=== PATIENT | male | born 1945 | race African-American/Black ===

== ENCOUNTER → 2020-02-10 | Outpatient (CLI) | payer BC ==
[~2020-02-10] MED LIST: AMLO10TA80 PO; PROP10TA10 PO; VITAMIN D PO; [UNRECOGNIZED DRUG - OTHER] PO
== END | disposition home or self-care (01) ==
LOC: LAB 09:35
PROVIDERS: ATTEND Surgery
DX: Z01.818 Encounter for other preprocedural examination (principal); Z11.59 Encounter for screening for other viral diseases
CPT/HCPCS: C9803; U0003

== ENCOUNTER 2020-02-12 07:45 | Day surgery (SDC) | payer BC ==
[~2020-02-12] VITALS: Ht 188 cm; Wt 121.1 kg
[2020-02-12] MEDS ORDERED: SKIN ADHESIVE 0.7 GM EA TOP ONE (08:37)
[2020-02-12] MEDS ORDERED: BUPIVACAINE HCL 0.5% (5MG/ML) 50ML ONE (08:38)
[2020-02-12] MEDS: LACTATED RINGERS 1,000 ML IV SCH ×2 (09:00→13:51)
[2020-02-12] MEDS ORDERED: FENTANYL CITRATE/PF 50MCG/ML 2ML VIAL ONE (09:55)
[2020-02-12] MEDS ORDERED: PROPOFOL 200MG/20ML VIAL IV ONE (09:55)
[2020-02-12] MEDS ORDERED: ROCURONIUM BROMIDE 10MG/ML VIAL 5ML IV ONE (09:55)
[2020-02-12] MEDS ORDERED: CEFAZOLIN SODIUM 1000MG/VIAL ONE (09:55)
[2020-02-12] MEDS ORDERED: LIDOCAINE HCL/PF 1% 10 MG/ML 5ML VIAL ONE (09:56)
[2020-02-12] MEDS ORDERED: SODIUM CHLORIDE 0.9% 10ML VIAL ONE ×2 (09:56→11:03)
[2020-02-12] MEDS ORDERED: ONDANSETRON HCL 4MG/2ML INJ ONE (10:24)
[2020-02-12] MEDS ORDERED: METOCLOPRAMIDE HCL 10MG/2ML VIAL ONE (10:24)
[2020-02-12] MEDS ORDERED: NEOSTIGMINE METHYLSULFATE 1MG/ML 10 ML VIAL ONE (11:00)
[2020-02-12] MEDS ORDERED: GLYCOPYRROLATE 0.2 MG/ML 2ML VIAL ONE (11:00)
[2020-02-12] MEDS ORDERED: PHENYLEPHRINE HCL 10 MG/ML 1ML (IV VIAL) IV ONE (11:03)
[2020-02-12] MEDS ORDERED: PROP10TA10 PO (11:27)
[2020-02-12] MEDS ORDERED: AMLO10TA80 PO (11:27)
[2020-02-12] MEDS ORDERED: [UNRECOGNIZED DRUG - OTHER] PO (11:27)
[2020-02-12] MEDS ORDERED: VITAMIN D PO (11:27)
[2020-02-12] MEDS ORDERED: SODIUM CHLORIDE 0.9% 1,000 ML IV ONE (11:37)
[2020-02-12] MEDS ORDERED: ONDANSETRON HCL 4MG/2ML INJ IV PRN (11:45)
[2020-02-12] MEDS ORDERED: MORPHINE SULFATE 2 MG/ML CPJ (NOT FOR IM USE) IV PRN (11:45)
[2020-02-12] MEDS ORDERED: MEPERIDINE HCL/PF 25MG/ML CPJ IV PRN (11:45)
[2020-02-12] MEDS: MEPERIDINE HCL/PF 25MG/ML CPJ IV PRN ×2 (11:51→12:07)
[2020-02-12] MEDS: HYDROMORPHONE HCL/PF 2MG/ML CPJ IV PRN ×2 (13:29→13:41)
[2020-02-12 13:41] VITALS: BP 148/92
== END 2020-02-12 16:00 | disposition home or self-care (01) ==
LOC: OR 07:45
PROVIDERS: ATTEND Surgery
DX: K42.9 Umbilical hernia without obstruction or gangrene (principal); I10 Essential (primary) hypertension; Z79.899 Other long term (current) drug therapy; K21.9 Gastro-esophageal reflux disease without esophagitis; Z98.890 Other specified postprocedural states
CPT/HCPCS: 49652; C1781; J0690; J1170; J2175; J2270; J2370; J2405; J2704; J2710; J2765; J3010; J3490